=== PATIENT | male | born 1995 | race American Indian/Alaskan Native ===

== ENCOUNTER 2019-03-12 17:37 | Emergency (ER) | payer OTHER ==
[2019-03-12] MEDS ORDERED: KEFLEX500 MG PO (18:07)
== END 2019-03-12 18:17 | disposition home or self-care (01) ==
LOC: ED 17:37
DX: L02.31 Cutaneous abscess of buttock (principal)
CPT/HCPCS: 99282

== ENCOUNTER 2020-01-13 13:56 | Emergency (ER) | payer OTHER ==
[~2020-01-13] VITALS: Ht 190.5 cm; Wt 117.9 kg
[~2020-01-13 13:56] MED LIST: KEFLEX500 MG PO
== END 2020-01-13 14:25 | disposition home or self-care (01) ==
LOC: ED 13:56
DX: R05 Cough (principal); R51 Headache